=== PATIENT | female | born 1980 | race Caucasian/White ===

== ENCOUNTER 2021-09-06 15:03 | Emergency (ER) | payer OTHER ==
[~2021-09-06] VITALS: Ht 167.6 cm; Wt 84.3 kg
[2021-09-06] MEDS ORDERED: LABETALOL 20 MG/4 ML DISP.SYRIN. IVP ONE (16:45)
--- NOTE | 2021-09-06 16:45 | PHYS DOC ---
Past History Past Medical History: Diabetes, Hypertension Adult General Chief Complaint Chief Complaint: NEURO SYMPTOMS/DEFICITS HPI HPI Patient is a 40-year-old female patient with history of diabetes type 2, hypertension, who presents the ED today complaining of numbness and tingling, to the right side of the body symptoms began yesterday. Patient reports symptoms are on the right cheek, right elbow to right fingers and right lateral thigh to the foot. Patient states symptoms are intermittent. Denies any headache, chest pain or shortness of breath. She states she has not taken her diabetes her blood pressure medicines today Review of Systems Review of Systems Constitutional: Denies fever or chills [] Eyes: Denies change in visual acuity, redness, or eye pain [] HENT: Denies nasal congestion or sore throat [] Respiratory: Denies cough or shortness of breath [] Cardiovascular: No additional information not addressed in HPI [] GI: Denies abdominal pain, nausea, vomiting, bloody stools or diarrhea [] : Denies dysuria or hematuria [] Musculoskeletal: Denies back pain or joint pain [] Integument: Denies rash or skin lesions [] Neurologic: Reports numbness to the right side of the body. Denies headache, focal weakness or sensory changes [] All other systems were reviewed and found to be within normal limits, except as documented in this note. Current Medications Current Medications Current Medications Medications (Trade) Dose Ordered Sig/Kael Start Time Stop Time Status Last Admin Dose Admin Labetalol HCl (Normodyne) 10 mg 1X ONCE 09/06/21 16:45 09/06/21 16:46 UNV Physical Exam Physical Exam Constitutional: Well developed, well nourished, no acute distress, non-toxic appearance. [] HENT: Normocephalic, atraumatic, bilateral external ears normal, oropharynx moist, no oral exudates, nose normal. [] Eyes: PERRLA, EOMI, conjunctiva normal, no discharge. [] Neck: Normal range of motion, no tenderness, supple, no stridor. [] Cardiovascular:Heart rate regular rhythm, no murmur [] Lungs & Thorax: Bilateral breath sounds clear to auscultation [] Abdomen: Bowel sounds normal, soft, no tenderness, no masses, no pulsatile masses. [] Skin: Warm, dry, no erythema, no rash. [] Back: No tenderness, no CVA tenderness. [] Extremities: No tenderness, no cyanosis, no clubbing, ROM intact, no edema. [] Neurologic: Alert and oriented X 3, normal motor function, normal sensory function, no focal deficits noted. Cranial nerves II through XII intact, 5 out of 5 strength to bilateral upper and lower extremities Psychologic: Affect normal, judgement normal, mood normal. [] EKG EKG [address] Cr sinus rhythm HR 77 no STEMI Radiology/Procedures Radiology/Procedures []PROCEDURE: CT HEAD WO CONTRAST PQRS Compliance Statement: One or more of the following individualized dose reduction techniques were utilized for this examination: 1. Automated exposure control 2. Adjustment of the mA and/or kV according to patient size 3. Use of iterative reconstruction technique CT HEAD WITHOUT CONTRAST History: Reason: numbness right side / Spl. Instructions: / History: Comparison: None. Procedure: Axial images are obtained of the head from the skull base through the vertex without IV contrast. Findings: The ventricles and sulci are normal for the patient's age. No mass-effect, midline shift, hemorrhage, extra-axial fluid collection, or obvious acute infarction is identified. Basilar cisterns are patent. Bone windows demonstrate no acute calvarial abnormality. The visualized paranasal sinuses are clear. Mastoid air cells are well aerated. IMPRESSION: No acute intracranial abnormality. Electronically signed by: Angelo Norman MD (09/06/2021 5:08 PM) [facility] DICTATED AND SIGNED BY: ANGELO NORMAN MD DATE: 09/06/21 170 CC: HERNANDEZ JACK APRN; CARRIE CLEMONS MD ~MTH0 0 PROCEDURE: PORTABLE CHEST 1V XR CHEST 1V Clinical Indication: Reason: numbness right side / Comparison: None. Findings: The cardiomediastinal silhouette is normal. Lungs are clear. There is no pneumothorax. No pleural effusion is appreciated. No acute bone abnormality. IMPRESSION: No acute cardiopulmonary process. Electronically signed by: Angelo Norman MD (09/06/2021 5:13 PM) [facility] DICTATED AND SIGNED BY: ANGELO NORMAN MD DATE: 09/06/21 171 CC: HERNANDEZ JACK APRN; CARRIE CLEMONS MD ~MTH0 0 Heart Score C/O Chest Pain: N/A Risk Factors: Risk Factors: DM, Current or recent (<one month) smoker, HTN, HLP, family history of CAD, obesity. Risk Scores: Risk Factors: DM, Current or recent (<one month) smoker, HTN, HLP, family history of CAD, obesity. Course & Med Decision Making Course & Med Decision Making Pertinent Labs and Imaging studies reviewed. (See chart for details) This is a 40-year-old female patient presented to the ED today complaining of numbness and tingling to the right cheek, right elbow to right fingers and right lateral thigh to the foot symptoms began yesterday. Patient symptoms are over 24 hours, she does not meet TPA requirements neither does she meet stroke activation protocal. Her symptoms are also not consistent CVA they are scattered to the right side of the body. CT of the head is negative, chest x-ray is negative, CBC with a WBC of 15.5, troponin is normal, BMP with glucose of 304, anion gap is normal, creatinine and BUN are normal. Patient reports not taking her blood pressure medicine or diabetes medicine today. I went to reassess patient, she has removed her armband. She is ready to go home. She states she will take her blood pressure medicine and diabetes medicine at home. She was instructed to follow-up with her PCP and provided neurologist for follow-up if symptoms persist Dragon Disclaimer Dragon Disclaimer This electronic medical record was generated, in whole or in part, using a voice recognition dictation system. Departure Departure: Impression: Primary Impression: Paresthesia Additional Impressions: Accelerated hypertension Hyperglycemia Disposition: HOME / SELF CARE / HOMELESS Condition: STABLE Referrals: CARRIE CLEMONS MD (PCP) follow up in one week Patient Instructions: Hyperglycemia, Hypertension, Paresthesia, [id number] Additional Instructions: You were seen for paresthesias. Please follow-up with your primary care doctor next week. Your blood pressure and blood sugar are high. Please ensure you are taking your medicines Problem Qualifiers HERNANDEZ JACK APRN Sep 06, 2021 16:45
--- NOTE | 2021-09-06 17:11 | RAD ---
PQRS Compliance Statement: One or more of the following individualized dose reduction techniques were utilized for this examinat ion: 1. Automated exposure control 2. Adjustment of the mA and/or kV according to patient size 3. Use of iterative reconstruction technique CT HEAD WITHOUT CONTRAST History: Reason: numbness right side / Spl. Instructions: / History: Comparison: None. Procedure: Axial images are obtained of the head from the skull base through the vertex without IV co ntrast. Findings: The ventricles and sulci are normal for the patient's age. No mass-effect, midline shift, hemorrhage, extra-axial fluid collection, or obvious acute infarction is identified. Basilar cisterns are patent. Bone windows demonstrate no acute calvarial abnormality. The visualized paranasal sinuses are clear. Mastoid air cells are well aerated. IMPRESSION: No acute intracranial abnormality. Electronically signed by: Angelo Norman MD (09/06/2021 5:08 PM) [facility]
--- NOTE | 2021-09-06 17:15 | RAD ---
XR CHEST 1V Clinical Indication: Reason: numbness right side / Comparison: None. Findings: The cardiomediastinal silhouette is normal. Lungs are clear. There is no pneumothorax. No pleural eff usion is appreciated. No acute bone abnormality. IMPRESSION: No acute cardiopulmonary process. Electronically signed by: Angelo Norman MD (09/06/2021 5:13 PM) [facility]
[2021-09-06 17:28] LABS: BASO % 0 % (0-3); EOS # 0.4 x10^3/uL (0.0-0.7); EOS % 3 % (0-3); HEMOGLOBIN 14.1 g/dL (12.0-15.5); LYMPH # 4.9 x10^3/uL (1.0-4.8); LYMPH % 32 % (24-48); MEAN CORPUSCULAR HEMOGLOBIN 31 pg (25-35); MEAN CORPUSCULAR HGB CONC 34 g/dL (31-37); MEAN CORPUSCULAR VOLUME 91 fL (79-100); MONO # 0.9 x10^3/uL (0.0-1.1); MONO % 6 % (0-9); NEUT # 9.2 x10^3uL (1.8-7.7); NEUT % 59 % (31-73); PLATELET COUNT 412 x10^3/uL (140-400); WHITE BLOOD COUNT 15.5 x10^3/uL (4.0-11.0)
[2021-09-06 17:40] LABS: CALCIUM 9.3 mg/dL (8.5-10.1); GFR 61.7; POTASSIUM 4.3 mmol/L (3.5-5.1)
[2021-09-06 17:45] LABS: ALBUMIN/GLOBULIN RATIO 0.8 (1.0-1.7); MAGNESIUM 2.4 mg/dL (1.8-2.4); TOTAL BILIRUBIN 0.4 mg/dL (0.2-1.0)
[2021-09-06 17:49] LABS: % EOS 2 % (0-5); % LYMPHS 34 % (24-48); % MONOS 4 % (0-10); % SEGS 60 % (35-66); PLT ESTIMATE ADEQUATE (ADEQUATE)
[2021-09-06 19:23] LABS: BILIRUBIN,URINE NEG (NEG); CLARITY,URINE CLEAR; COLOR,URINE YELLOW; GLUCOSE,URINE >=1000 mg/dL (NEG)
[2021-09-06 19:24] LABS: BACTERIA,URINE 0 /HPF (0-FEW); HYALINE CASTS, URINE FEW /HPF; NITRITE,URINE NEG (NEG); RBC,URINE OCC /HPF (0-2); SQUAMOUS EPITHELIAL CELL,UR MOD /LPF; UROBILINOGEN,URINE 0.2 mg/dL (0.2 mg/dL); WBC,URINE OCC /HPF (0-4)
[2021-09-06 19:43] LABS: BARBITURATES NEG (NEG); BENZODIAZEPINES NEG (NEG); CANNABINOIDS NEG (NEG); COCAINE NEG (NEG); METHADONE NEG (NEG); OPIATES NEG (NEG); PHENCYCLIDINE NEG (NEG)
[2021-09-06 19:48] LABS: AMPHETAMINE/METHAMPHETAMINE NEG (NEG)
[2021-09-06 20:05] VITALS: BP 196/102
--- NOTE | 2021-09-06 23:09 | EKG ---
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
== END 2021-09-06 20:12 | disposition home or self-care (01) ==
LOC: ER 15:03
DX: R20.2 Paresthesia of skin (principal); I10 Essential (primary) hypertension; E11.65 Type 2 diabetes mellitus with hyperglycemia
CPT/HCPCS: 36415; 70450; 71045; 80053; 80307; 81001; 83735; 84484; 85007; 85025; 85610; 85730; 93005; 96374; 99285; J3490